=== PATIENT | female | born 1985 | race Two or more races ===

== ENCOUNTER 2019-07-28 17:48 | Emergency (ER) | payer BC, MEDICAID ==
[~2019-07-28] VITALS: Ht 144.8 cm; Wt 74.8 kg
[2019-07-28] MEDS ORDERED: NKM (18:00)
--- NOTE | 2019-07-28 18:10 | NUR ---
ED Nurse Note: Patient walked in to ER due to hematuria and pelvic pain. Patient is awake, alert and orientedx4, ambulatory. Patient states he has been having hematuria, dysuria and increased frequency of urination. Denies any pain at this time. Patient denies any fever/n/v.
[2019-07-28 18:17] VITALS: BP 107/56
[2019-07-28 18:25] LABS: APPEARANCE,URINE CLEAR; BILIRUBIN, URINE NEGATIVE (NEGATIVE); COLOR,URINE PALE YELLOW; GLUCOSE, URINE (UA) NEGATIVE (NEGATIVE); KETONES,URINE NEGATIVE (NEGATIVE); LEUKOCYTE ESTERASE ,URINE 1+ (NEGATIVE); NITRITE,URINE NEGATIVE (NEGATIVE); PH,URINE 5 (4.5-8.0); PROTEIN,URINE NEGATIVE (NEGATIVE); UROBILINOGEN,URINE 1 MG/DL (0.0-1.0)
--- NOTE | 2019-07-28 18:44 | Emergency Room Report ---
History of Present Illness General Chief Complaint: Female Urogenital Problems Source: Patient Present Illness HPI Disclaimer: Please note that this report is being documented using DRAGON technology. This can lead to erroneous entry secondary to incorrect interpretation by the dictating instrument. HPI: 34-year-old otherwise healthy female presents for evaluation of dysuria and hematuria. Symptoms began 2 days ago when she was began to pass red-tinged urine as well as noticed some painful urination. She denies abdominal pain otherwise and only notes pain while passing urine. Denies flank pain, fever, chills, chest pain, cough. She was recently treated for urinary tract infection 2 weeks ago by her PMD but cannot recall the medication she was taking. She had been asymptomatic for some time. She gets urinary tract infections once in a while. LMP was approximately 3 weeks ago. States this is different from her menstrual pain. Denies vaginal bleeding or vaginal discharge. PMH: Denies PSH: Denies Allergies: Denies Social Hx: Denies drugs or alcohol Allergies: Coded Allergies: No Known Allergies (Unverified , 07/28/19) Nursing Documentation-PMH Past Medical History: No Stated History Review of Systems All Other Systems: negative except mentioned in HPI Physical Exam Vital Signs Date Time Temp Pulse Resp B/P (MAP) Pulse Ox O2 Delivery O2 Flow Rate FiO2 07/28/19 17:56 97.9 68 17 128/70 (89) 99 Room Air General: Awake and alert, no acute distress HEENT: NC/AT. EOMI. Cardiovascular: RRR. S1 and S2 normal. No murmur appreciated Resp: Normal work of breathing. No cough, wheezing or crackles appreciated Abdomen: Abdomen is soft, nondistended. Nontender Skin: Intact. No abrasions, laceration or rash over the exposed skin MSK: Normal tone and bulk. Moving all extremities. No obvious deformity. Neuro: Awake and alert. Mentating appropriately. Back/Spine: No CVA tenderness Medical Decision Making Diagnostic Impression: Primary Impression: UTI (urinary tract infection) Additional Impression: Hematuria ER Course 34-year-old female recently treated for urinary tract infection resents for evaluation of dysuria and hematuria. Will check renal function, blood cell count and a urinalysis. Likely, this is another urinary tract infection or any complete resolution of the first 1. She cannot recall the antibiotic she was on previously and there is no record in our EMR of prior visits or other prescriptions from other facilities. Laboratory Tests Test 07/28/19 18:06 07/28/19 18:45 Urine Color Pale yellow Urine Appearance Clear Urine pH 5 (4.5-8.0) Urine Specific [place] 1.015 (1.005-1.035) Urine Protein Negative (NEGATIVE) Urine Glucose (UA) Negative (NEGATIVE) Urine Ketones Negative (NEGATIVE) Urine Blood 3+ (NEGATIVE) H Urine Nitrite Negative (NEGATIVE) Urine Bilirubin Negative (NEGATIVE) Urine Urobilinogen 1 MG/DL (0.0-1.0) H Urine Leukocyte Esterase 1+ (NEGATIVE) H Urine RBC 0-2 /HPF (0 - 2) Urine WBC 5-10 /HPF (0 - 2) H Urine Squamous Epithelial Cells Few /LPF (NONE/OCC) Urine Bacteria Many /HPF (NONE) H White Blood Count 11.0 K/UL (4.8-10.8) H Red Blood Count 4.71 M/UL (4.20-5.40) Hemoglobin 12.8 G/DL (12.0-16.0) Hematocrit 37.9 % (37.0-47.0) Mean Corpuscular Volume 80 FL (80-99) Mean Corpuscular Hemoglobin 27.3 PG (27.0-31.0) Mean Corpuscular Hemoglobin Concent 33.9 G/DL (32.0-36.0) Red Cell Distribution Width 10.8 % (11.6-14.8) L Platelet Count 359 K/UL (150-450) Mean Platelet Volume 6.4 FL (6.5-10.1) L Neutrophils (%) (Auto) 55.7 % (45.0-75.0) Lymphocytes (%) (Auto) 24.5 % (20.0-45.0) Monocytes (%) (Auto) 6.4 % (1.0-10.0) Eosinophils (%) (Auto) 12.3 % (0.0-3.0) H Basophils (%) (Auto) 1.0 % (0.0-2.0) Sodium Level 142 MMOL/L (136-145) Potassium Level 3.7 MMOL/L (3.5-5.1) Chloride Level 104 MMOL/L (98-107) Carbon Dioxide Level 26 MMOL/L (21-32) Anion Gap 12 mmol/L (5-15) Blood Urea Nitrogen 11 mg/dL (7-18) Creatinine 0.7 MG/DL (0.55-1.30) Estimate Glomerular Filtration Rate > 60 mL/min (>60) Glucose Level 96 MG/DL (74-106) Calcium Level 9.2 MG/DL (8.5-10.1) Reevaluation Time: 19:39 Last Vital Signs Date Time Temp Pulse Resp B/P (MAP) Pulse Ox O2 Delivery O2 Flow Rate FiO2 07/28/19 18:17 98.5 65 14 107/56 100 Room Air Reevaluation Impression Labs show normal renal function, no significant white count, hemoglobin of 12.8 and evidence of an acute urinary tract infection with 1+ leukocyte Estrace, pyuria and many bacteria. She also has 3+ blood. Patient will be treated with antibiotics and discharged to follow-up with her PMD. She will require repeat testing for hematuria. We discussed she may require specialist follow-up if the symptoms persist however it may improve after treatment with antibiotics. Will start Keflex and have the patient discharged and follow-up with her PMD. Discussed reasons to return to the emergency department. She understands and agrees with this treatment plan. Disposition: HOME, SELF-CARE Condition: Stable Scripts Cephalexin* (KEFLEX*) 500 Mg Capsule 500 MG ORAL EVERY 12 HOURS, #14 CAP 0 Refills Prov: Renan Valencia MD 07/28/19 Renan Valencia MD Jul 28, 2019 18:44
--- NOTE | 2019-07-28 18:51 | NUR ---
ED Nurse Note: labs sent.
[2019-07-28 18:59] LABS: EOSINOPHILS % (AUTO) 12.3 % (0.0-3.0); HEMATOCRIT 37.9 % (37.0-47.0); HEMOGLOBIN 12.8 G/DL (12.0-16.0); LYMPHOCYTES % (AUTO) 24.5 % (20.0-45.0); MEAN CORPUSCULAR VOLUME 80 FL (80-99); MONOCYTES % (AUTO) 6.4 % (1.0-10.0); NEUTROPHILS % (AUTO) 55.7 % (45.0-75.0); PLATELET COUNT 359 K/UL (150-450); RED BLOOD COUNT 4.71 M/UL (4.20-5.40); RED CELL DISTRIBUTION WIDTH 10.8 % (11.6-14.8)
[2019-07-28 19:00] VITALS: BP 110/62
--- NOTE | 2019-07-28 19:05 | NUR ---
ED Nurse Note: Received report from Milagro RICARDO. Alert and oriented, verbally responsive. No SOB. VSS.
[2019-07-28 19:09] LABS: ANION GAP 12 mmol/L (5-15); BLOOD UREA NITROGEN 11 mg/dL (7-18); CALCIUM 9.2 MG/DL (8.5-10.1); CARBON DIOXIDE 26 MMOL/L (21-32); CHLORIDE 104 MMOL/L (98-107); CREATININE 0.7 MG/DL (0.55-1.30); POTASSIUM 3.7 MMOL/L (3.5-5.1); SODIUM 142 MMOL/L (136-145)
[2019-07-28] MEDS ORDERED: CEPHALEXIN500 MG ORAL (19:39)
[2019-07-28 19:49] VITALS: BP 110/62
--- NOTE | 2019-07-28 19:49 | NUR ---
ED Nurse Note: Pt cleared by ERMD for discharge. DC instructions/prescription was given and explained to pt and verbalized understanding of teachings. All medical deviecs such as ID band removed. Pt is AAO x4, ambulatory and left with all personal belongings. Accompanied by a family member.
== END 2019-07-28 22:00 | disposition home or self-care (01) ==
LOC: EMR 21:16
DX: N39.0 Urinary tract infection, site not specified (principal); R31.9 Hematuria, unspecified
CPT/HCPCS: 36415; 80048; 81003; 85025; 87086; 87181; Z7502; 99283